=== PATIENT | female | born 1955 ===

== ENCOUNTER 2022-06-03 22:11 | Inpatient (IN) ==
[2022-06-03 22:53] LABS: Basophils % 0.3 % (0.0-0.8); Eosinophils # 0.1 10*3/uL (0.0-0.87); Eosinophils % 1.3 % (0.00-10.9); Hematocrit 27.5 VOL% (35.7-47.0); Hemoglobin 8.8 GM/DL (12.0-16.0); Immature Granulocytes % 0.5 %; Immature Granulocytes Absolute 0.05 #; Lymphocytes # 1.5 10*3/uL (1.4-4.0); Lymphocytes % 13.6 % (21.3-54.2); Mean Corpuscular Volume 97.9 FL (87-102); Mean Platelet Volume 9.3 FL (9.6-12.0); Monocytes # 0.8 10*3/uL (0.11-0.8); Monocytes % 7.8 % (1.7-12.7); Neutrophils % 76.5 % (38.7-73.9); Platelet Count 279 T/CUMM (130-400); Red Blood Count 2.81 MC/CUMM (3.8-5.5); Red Cell Distribution Width 15.1 % (9.3-17.3)
[2022-06-03 23:00] LABS: Bilirubin,Total 0.6 MG/DL (0.20-1.00); Calcium 7.9 MG/DL (8.5-10.1); Osmolality,Calculated 299.4 MOS/KG (273-304); Potassium 3.7 MMOL/L (3.5-5.1); Total Protein 5.8 G/DL (6.4-8.2)
[2022-06-03] MEDS ORDERED: ACETAMINOPHEN 325 MG TABLET PO PRN (23:21)
[2022-06-03] MEDS ORDERED: MORPHINE 2 MG/1 ML SYRINGE IV PRN (23:21)
[2022-06-03] MEDS ORDERED: NICOTINE 21 MG/24 HR PATCH TRANSDERM PRN (23:21)
[2022-06-03] MEDS ORDERED: ALBUTEROL/IPRATROPIUM 3 ML NEB RESP TX PRN (23:21)
[2022-06-03] MEDS ORDERED: PROMETHAZINE 25 MG/1 ML VIAL IM PRN (23:21)
[2022-06-03] MEDS ORDERED: ONDANSETRON 4 MG/2 ML VIAL IV PRN (23:21)
[2022-06-03] MEDS ORDERED: PROMETHAZINE INJ 12.5 MG in SODIUM CHLORIDE 0.9% 50 ML IV STA (23:36)
[2022-06-03 23:52] LABS: INR 1.4; PT Patient Result 15.6 SECS (10.1-12.1); Partial Thromboplastin Time 31.2 SECS (23.7-32.9)
[2022-06-04] MEDS: SODIUM CHLOR 0.9% KCL 40 MEQ 40 MEQ/1,000 ML BAG IV SCH ×2 (01:32→16:23)
[2022-06-04 04:54] LABS: Basophils # 0.1 10*3/uL (0.0-0.2); Basophils % 0.6 % (0.0-0.8); Eosinophils # 0.2 10*3/uL (0.0-0.87); Immature Granulocytes % 0.6 %; Immature Granulocytes Absolute 0.05 #; Lymphocytes # 1.4 10*3/uL (1.4-4.0); Lymphocytes % 15.5 % (21.3-54.2); Mean Corpuscular HGB Conc 32.1 GM/DL (32-36); Mean Corpuscular Volume 97.9 FL (87-102); Mean Platelet Volume 9.5 FL (9.6-12.0); Monocytes # 0.8 10*3/uL (0.11-0.8); Monocytes % 9.2 % (1.7-12.7); Neutrophils % 72.1 % (38.7-73.9); Platelet Count 266 T/CUMM (130-400); Red Blood Count 2.86 MC/CUMM (3.8-5.5); Red Cell Distribution Width 15.1 % (9.3-17.3); White Blood Count 8.84 T/CUMM (4-12)
[2022-06-04 05:13] LABS: Calcium 8.1 MG/DL (8.5-10.1); Osmolality,Calculated 304.1 MOS/KG (273-304); Potassium 3.6 MMOL/L (3.5-5.1)
[2022-06-04 05:19] LABS: Folate 14.05 NG/ML (5.38-24.0); Vitamin B12 1865 PG/ML (211-911)
[2022-06-04 05:59] LABS: Sedimentation Rate-Westergren 103 MM/HR (0-30)
[2022-06-04] MEDS ORDERED: PNEUMOCOCCAL VACCINE (23 VALENT) 0.5 ML VIAL IM ONE (09:00)
[2022-06-04] MEDS ORDERED: FAMOTIDINE 20 MG/2 ML VIAL IV SCH (09:00)
[2022-06-04] MEDS: INSULIN LISPRO 100 UNIT/ML SUBCUT SCH ×3 (11:56→20:38)
[2022-06-04 12:01] LABS: Hemoglobin A1 (Alkaline) 97.5 % (96.5-98.5); Hemoglobin A2 (Alkaline) 2.5 % (1.5-3.5)
[2022-06-04 18:10] LABS: Cancer Antigen 19-9 < 1.20 U/ML (0-35)
[2022-06-05] MEDS: SODIUM CHLOR 0.9% KCL 40 MEQ 40 MEQ/1,000 ML BAG IV SCH ×2 (03:13→10:33)
[2022-06-05] MEDS: LACTATED RINGERS 1,000 ML IV SCH (07:35)
[2022-06-05] MEDS ORDERED: propofoL 200 MG/20 ML VIAL IV ONE (08:00)
[2022-06-05] MEDS ORDERED: LIDOCAINE 2% 5 ML VIAL ONE (08:00)
[2022-06-05] MEDS ORDERED: ESMOLOL 100 MG/10 ML VIAL IV ONE (08:04)
[2022-06-05] MEDS: hydrALAZINE 20 MG/1 ML VIAL IV PRN ×2 (10:32→16:45)
[2022-06-05] MEDS: PANTOPRAZOLE 40 MG VIAL IV SCH ×2 (10:32→22:07)
[2022-06-05] MEDS: INSULIN LISPRO 100 UNIT/ML SUBCUT SCH ×3 (10:33→17:12)
[2022-06-05] MEDS: METOCLOPRAMIDE 10 MG/2 ML VIAL IV SCH ×2 (12:17→17:13)
[2022-06-05] MEDS: SODIUM CHLOR 0.45% KCL 20 MEQ 20 MEQ/1,000 ML BAG IV SCH (14:52)
[2022-06-06] MEDS: INSULIN LISPRO 100 UNIT/ML SUBCUT SCH ×3 (00:06→12:41)
[2022-06-06] MEDS: METOCLOPRAMIDE 10 MG/2 ML VIAL IV SCH ×3 (00:20→12:41)
[2022-06-06] MEDS: SODIUM CHLOR 0.45% KCL 20 MEQ 20 MEQ/1,000 ML BAG IV SCH ×2 (00:31→11:30)
[2022-06-06 06:37] LABS: Basophils % 0.4 % (0.0-0.8); Eosinophils # 0.2 10*3/uL (0.0-0.87); Eosinophils % 2.6 % (0.00-10.9); Hematocrit 31.4 VOL% (35.7-47.0); Hemoglobin 9.9 GM/DL (12.0-16.0); Immature Granulocytes % 0.5 %; Immature Granulocytes Absolute 0.05 #; Lymphocytes # 1.3 10*3/uL (1.4-4.0); Lymphocytes % 14.3 % (21.3-54.2); Mean Corpuscular HGB Conc 31.5 GM/DL (32-36); Mean Corpuscular Volume 99.7 FL (87-102); Mean Platelet Volume 9.4 FL (9.6-12.0); Monocytes # 0.7 10*3/uL (0.11-0.8); Monocytes % 7.1 % (1.7-12.7); Neutrophils % 75.1 % (38.7-73.9); Platelet Count 220 T/CUMM (130-400); Red Blood Count 3.15 MC/CUMM (3.8-5.5); Red Cell Distribution Width 15.4 % (9.3-17.3); White Blood Count 9.18 T/CUMM (4-12)
[2022-06-06 07:00] LABS: Albumin 1.8 G/DL (3.4-5.0); Bilirubin,Total 0.6 MG/DL (0.20-1.00); Calcium 7.9 MG/DL (8.5-10.1); Osmolality,Calculated 298.3 MOS/KG (273-304); Potassium 3.9 MMOL/L (3.5-5.1); Total Protein 5.8 G/DL (6.4-8.2)
[2022-06-06] MEDS: PANTOPRAZOLE 40 MG VIAL IV SCH (09:20)
[2022-06-06] MEDS: LACTATED RINGERS 1,000 ML IV SCH (11:29)
[2022-06-06 11:51] VITALS: BP 189/73
== END 2022-06-06 12:25 | disposition home or self-care (01) | DRG 375 ==
LOC: N.ED 22:11 → N.TELES 23:21
PROVIDERS: ADMIT Emergency Medicine; ATTEND Emergency Medicine